=== PATIENT | female | born 1980 ===

== ENCOUNTER 2019-11-22 07:03 | Day surgery (SDC) | payer OTHER ==
[~2019-11-22 07:03] MED LIST: TIROSINT25 MCG; ZOLOFT100 MG PO
[2019-11-22] MEDS ORDERED: NEURONTIN600 M1 PO (12:47)
[2019-11-22] MEDS ORDERED: PERCOCET 5-3251 EACH PO (12:47)
[2019-11-22] MEDS ORDERED: COLACE100 MG PO (12:48)
== END 2019-11-22 13:20 | disposition home or self-care (01) ==
LOC: CIR.AMB 07:03 → ADM 10:45 → CIR.AMB 10:45
DX: K42.0 Umbilical hernia with obstruction, without gangrene (principal)